=== PATIENT | male | born 1980 | race Caucasian/White ===

== ENCOUNTER 2017-10-20 17:46 | Emergency (ER) | payer SELFPAY ==
[~2017-10-20] VITALS: Ht 180.3 cm; Wt 92.1 kg
[~2017-10-20 17:46] MED LIST: SILVADENE20 GM TP; TYLENOL WITH C1 EACH PO
[2017-10-20 20:27] VITALS: BP 133/80
== END 2017-10-20 20:27 | disposition home or self-care (01) ==
LOC: EME 17:46
DX: H11.31 Conjunctival hemorrhage, right eye (principal); S00.11XA Contusion of right eyelid and periocular area, initial encounter; V29.9XXA Motorcycle rider (driver) (passenger) injured in unspecified traffic accident, initial encounter
CPT/HCPCS: 70450; 70486; 99281; 99284